=== PATIENT | female | born 1960 | race Caucasian/White ===

== ENCOUNTER 2019-02-27 15:14 | Emergency (ER) | payer MEDICAID ==
[2019-02-27] MEDS ORDERED: HYDROmorphone 1 mg/mL 1mL Syr IM STA (15:43)
[2019-02-27] MEDS ORDERED: HYDROmorphone 1 mg/mL 1mL Syr ONE ×2 (15:47→22:20)
--- NOTE | 2019-02-27 16:16 | ED Physician Chart ---
ED Chief Complaint/HPI - Patient Information Date Seen:: 02/27/19 Time Seen:: 15:30 Chief Complaint:: Back Pain History of Present Illness:: onset x 2 weeks of intermittent, sharp, MS type Low Back Pain; pt has Hx of chronic back pain and multiple DDD and Fx; pt denies any new injuries; pt denies LOC, ALOC, AMS, H/As, neck pain, C/P, SOB, Abd. Pain, A/N/V/D/C, fever, chills, or urinary s/s; pt is post-menopausal; pt's last tetanus shot: < 5 years ; UTD Allergies:: Allergies Allergy/AdvReac Type Severity Reaction Status Date / Time morphine Allergy Verified 09/22/16 05:38 NSAIDS (Non-Steroidal AdvReac Verified 09/22/16 02:49 Anti-Inflamma prochlorperazine AdvReac Verified 09/22/16 02:49 [From Compazine] prochlorperazine edisylate AdvReac Verified 09/22/16 02:49 [From Compazine] prochlorperazine maleate AdvReac Verified 09/22/16 02:49 [From Compazine] Sulfa (Sulfonamide AdvReac Verified 09/22/16 02:49 Antibiotics) Vitals:: Vital Signs - 8 hr 02/27/19 15:29 Temp 98.2 F HR 108 RR 16 O2 Sat % 96 Historian:: Patient Review:: Nurse's Note Reviewed, Old Chart Reviewed ED Review of Systems - Review of Systems General/Constitutional: No fever, No chills, No weight loss, No weakness, No diaphoresis, No edema, No loss of appetite Skin: No skin lesions, No rash, No bruising Head: No headache, No light-headedness Eyes: No loss of vision, No pain, No diplopia ENT: No earache, No nasal drainage, No sore throat, No tinnitus Neck: No neck pain, No swelling, No thyromegaly, No stiffness, No mass noted Cardio Vascular: No chest pain, No palpitations, No PND, No orthopnea, No edema Pulmonary: No SOB, No cough, No sputum, No wheezing GI: No nausea, No vomiting, No diarrhea, No pain, No melena, No hematochezia, No constipation, No hematemesis G/U: No dysuria, No frequency, No hematuria, No nacturia Django Developer: No vaginal discharge, No abnormal vaginal bleed, No contraction Musculoskeletal: Bone or joint pain, Back pain, No muscle pain Endocrine: No polyuria, No polydipsia Psychiatric: Prior psych history, No depression, Anxiety, No suicidal ideation, No homicidal ideation, No auditory hallucination, No visual hallucination Hematopoietic: No bruising, No lymphadenopathy Allergic/Immuno: No urticaria, No angioedema Neurological: No syncope, No focal symptoms, No weakness, No paresthesia, No headache, No seizure, No dizziness, No confusion, No vertigo ED Past Medical History - Past Medical History Obtainable: Yes Past Medical History: HTN, DM, Arthritis Family History: None Social History: Non Smoker, No Alcohol, No Drug Use, Surgical History: Hysterectomy Psychiatricy History: None Medication: Reviewed Family Medical History - Family Member Mother History Unknown: Yes Ethnicity: Non- Living Status: Hx Family Cancer: Yes Hx Family Coronary Artery Disease: Yes Hx Family Congestive Heart Failure: No Hx Family Hypertension: Yes Hx Family Stroke: Yes Hx Family Diabetes: Yes Hx Family Seizures: No Hx Family Dementia: No Hx Family AIDS: No Hx Family HIV: No Hx Family COPD: No Hx Family Hepatitis: No Hx Family Psychiatric Problems: Yes Hx Family Tuberculosis: No Father History Unknown: Yes Living Status: Hx Family Cancer: Yes ED Physical Exam - Physical Examination General/Constitutional: Awake, Well-developed, well-nourished, Alert, No distress, GCS 15, Non-toxic appearing, Ambulatory Head: Atraumatic Eyes: Lids, conjuctiva normal, PERRL, EOMI Skin: Nl inspection, No rash, No skin lesions, No ecchymosis, Well hydrated, No lymphadenopathy ENMT: External ears, nose nl, TM canals nl, Nasal exam nl, Lips, teeth, gums nl , Oropharynx nl, Tonsils nl Neck: Nontender, Full ROM w/o pain, No JVD, No nuchal rigidity, No bruit, No mass, No stridor Other Neck comments:: supple; no meningeal signs; no cervical tenderness; no bruits Respiratory: Nl effort/Exclusion, Clear to Auscultation, No Wheeze/Rhonchi/Rales Cardio Vascular: RRR, No murmur, gallop, rubs, NL S1 S2, Carotid/Femoral/Distal pulses equal bilaterally GI: No tenderness/rebounding/guarding, No organomegaly, No hernia, Normal BS's, Nondistended, No mass/bruits, No McBurney tenderness Other GI comments:: no pulsatile masses : No CVA tenderness Extremities: No tenderness or effusion, Full ROM, normal strength in all extremities, No edema, Normal digits & nails Neuro/Psych: Alert/oriented, DTR's symmetric, Normal sensory exam, Normal motor strength, Judgement/insight normal, Mood normal, Normal gait, No focal deficits Other Neuro/Psych comments:: no focal signs Misc: Normal back, No paraspinal tenderness Other Misc comments:: + L-S Tenderness; good motor and sensory functions; good NV functions ED Septic Shock - . Is Septic Shock (SBP<90, OR Lactate>4 mmol\L) present?: No - <6hrs of presentation: Vital Signs: Vital Signs - 8 hr / 15:29 Temp 98.2 F HR 108 RR 16 O2 Sat % 96 ED Reassessment (Disposition) - Reassessment Reassessment Condition:: Improved - Diagnosis Diagnosis:: Back Pain; Chronic Pain Syndrome; DM; HTN; Leukopenia; Hyponatremia; Hyperglycemia; Intractable Back Pain; Uncontrolled Diabetes Mellitus; Dehydration - Aftercare/Follow up Instructions Aftercare/Follow-Up Instructions:: Counseled pt regarding lab results/diagnosis & need follow up, Counseled pt & family regarding lab results/diagnosis & need follow up - Patient Disposition Discharge/Transfer:: Acute Care w/in this hosp Accepting Physician:: Dr. Tierra Osman Time Called:: [id number] Time Responded:: 17:15 Admitted to:: Telemetry Spoke to:: Dr. Navarro/ Dr. Tierra Omsan Admitting Medical Physician:: Dr. Tierra Osman Condition at Disposition:: Stable, Improved
[2019-02-27] MEDS ORDERED: Sodium Chloride 0.9% 1,000 ML IV ONE (17:21)
[2019-02-27 17:51] LABS: HEMOGLOBIN 14.1 gm/dL (12-16); MEAN CELL VOLUME 91.5 fl (81-100); MEAN CORPUSCULAR HEMOGLOBIN 29.9 pg (27.0-31.0); MEAN CORPUSCULAR HGB CONC 32.7 pg (28.0-36.0); MEAN PLATELET VOLUME 8.9 fl; PLATELET COUNT 136 Th/cmm (150-400); RED CELL DISTRIBUTION WIDTH 13.6 % (11.5-20.0)
[2019-02-27 18:09] LABS: ALBUMIN 4.4 gm/dL (3.7-5.3); ALKALINE PHOSPHATASE 158 U/L (34-104); ANION GAP 11.2 (7.0-16.0); BILIRUBIN,TOTAL 0.8 mg/dL (0.3-1.0); BUN - UREA NITROGEN 19 mg/dL (7-25); CALCIUM SERUM 9.7 mg/dL (8.6-10.3); CARBON DIOXIDE 29.3 mEq/L (21.0-31.0); CHLORIDE 98 mEq/L (98-107); CREATININE - SERUM 0.9 mg/dL (0.6-1.2); GFR AFRICAN-AMERICAN > 60.0 ml/min (>90); GFR NON AFRICAN-AMERICAN > 60.0 ml/min; GLUCOSE 368 mg/dL (70-105); POTASSIUM SERUM 4.5 mEq/L (3.5-5.1); SGOT 7 U/L (13-39); SGPT/ALT 7 U/L (7-52); SODIUM SERUM 134 mEq/L (136-145); TOTAL PROTEIN,SERUM 6.6 gm/dL (6.0-8.3)
[2019-02-27 18:20] LABS: WHITE BLOOD COUNT 2.4 Th/cmm (4.8-10.8)
[2019-02-27] MEDS ORDERED: INSULIN HUMAN REGULAR 100 UNITS/ML UNIT SUBQ ONE (18:53)
[2019-02-27 19:13] LABS: NEUTROPHILS 68 % (40-80)
[2019-02-27 19:14] LABS: LYMPHOCYTE 28 % (20-50); MONOCYTE 4 % (2-10)
[2019-02-27] MEDS ORDERED: HYDROmorphone 1 mg/mL 1mL Syr IVP STA (22:14)
[2019-02-27] MEDS ORDERED: INSULIN HUMAN REGULAR 100 UNITS/ML UNIT ONE (22:51)
--- NOTE | 2019-02-28 09:02 | Diagnostic Imaging Report ---
CT cervical spine without IV contrast HISTORY: Trauma, pain COMPARISON: None Technique: Axial images were obtained from the skull base to the upper thoracic spine without IV contrast. Multiplanar reconstructions were made. Total DLP: 460, CTDI22.6 FINDINGS: Images of the cervical spine obtained without contrast demonstrate no evidence of an acute fracture or subluxation. There is minimal chronic vertebral body loss of height of superior endplate of 5. Mild to moderate changes are noted greatest within the facet joints on the left at C3/C4 causing mild leftward neural foraminal narrowing at this level. No prevertebral soft tissue swelling. There are small lucencies within the bones. The Lung apices are clear. IMPRESSION: No evidence of acute fracture or subluxation. Minimal chronic vertebral body loss of height of the superior endplate of C5. Mild degenerative changes. Small lucencies within the bone probably related to osteopenia. Other etiologies such as multiple myeloma be considered less likely, however, clinical correlation is needed.
--- NOTE | 2019-02-28 09:47 | Diagnostic Imaging Report ---
CT lumbar spine without IV contrast HISTORY: Trauma, pain COMPARISON: Lumbar spine x-rays on 04/02/2015 Technique: Axial images were obtained from the lower thoracic spine to the upper sacrum without IV contrast. Reconstructions were made. total DLP: 1190, CTDI 53 Findings: Osteopenia is noted. There are compression fractures involving the superior endplate of L2 L3 L4 and L5, which are age indeterminate. The L5 fracture may and acute components. Compression Fractures are most pronounced at L4 with 40% loss of height at this level with additional superior Schmorl's node. There is 2 to 3 mm retropulsion at the L2-L5 levels. There is lucency of the left L5 pedicle probably a vascular channel. Nondisplaced fractures less likely. Multilevel posterior disc bulges also noted the largest at L5/S1 measuring 4 mm. Multilevel spinal canal encroachment is noted due to combination of disc bulges and areas of retrolisthesis. This is most pronounced at L3/L4 and L4/L5 with moderate to severe spinal canal narrowing at these levels. Multilevel neural foraminal encroachment is noted greatest at L5/S1 with moderate bilateral neural foraminal encroachment at this level. Vacuum phenomenon is seen at L4/L5 and L5/S1 with moderate disc space loss of height at L5/S1. There is evidence of prior cholecystectomy. Mild atherosclerosis is noted. 2 mm nonobstructive right renal stone is noted. IMPRESSION: Multilevel mild to moderate age-indeterminate compression fractures of L2-L5. The L5 compression fracture may have acute components. 2 to 3 mm retropulsion is seen throughout these levels. Subtle lucency of the left L5 pedicle, probably a nutrient vessel. A nondisplaced fracture is less likely. Correlate clinically. Diffuse degenerative changes as above. Combination of compression fractures and retrolisthesis and disc bulges causes spinal canal encroachment most pronounced at L3/L4 and L4/L5 with moderate to severe spinal canal narrowing at these levels. Osteopenia. Evidence of prior cholecystectomy Punctate nonobstructive right renal stone Atherosclerosis.
== END 2019-02-28 03:15 | disposition left against medical advice (07) ==
LOC: ER 15:14
DX: G89.29 Other chronic pain (principal); M54.5 Low back pain; I10 Essential (primary) hypertension; E11.65 Type 2 diabetes mellitus with hyperglycemia; E86.0 Dehydration; E87.1 Hypo-osmolality and hyponatremia; D72.819 Decreased white blood cell count, unspecified; M19.90 Unspecified osteoarthritis, unspecified site; Z90.710 Acquired absence of both cervix and uterus; Z88.2 Allergy status to sulfonamides; Z88.5 Allergy status to narcotic agent; Z88.8 Allergy status to other drugs, medicaments and biological substances
CPT/HCPCS: 99285; 96372 ×2; 96374; 72125; 72131; 36415; 36416; 83605; 85007; 85025; 83036; 80053; 87040; J1815; J1170